=== PATIENT | male | born 1985 | race American Indian/Alaskan Native ===

== ENCOUNTER 2021-11-15 08:40 | Emergency (ER) | payer SELFPAY | END 2021-11-15 10:50 | disposition left against medical advice (07) | LOC: ED 08:40 | DX: S89.90XA Unspecified injury of unspecified lower leg, initial encounter (principal); Z53.21 Procedure and treatment not carried out due to patient leaving prior to being seen by health care provider; X58.XXXA Exposure to other specified factors, initial encounter; Y93.89 Activity, other specified; Y92.89 Other specified places as the place of occurrence of the external cause; Y99.8 Other external cause status ==